=== PATIENT | male | born 1975 | race Caucasian/White ===

== ENCOUNTER 2022-06-21 17:55 | Emergency (ER) | payer SELFPAY ==
[~2022-06-21] VITALS: Ht 175.3 cm; Wt 118.0 kg
[2022-06-21 18:08] VITALS: BP 158/93
[2022-06-21] MEDS ORDERED: SODIUM CHLORIDE 0.9% 1,000 ML IV ONE (18:15)
[2022-06-21 18:43] LABS: BASOPHILS % 0.4 % (0.0-2.0); EOSINOPHILS % 1.2 % (0.0-5.0); HEMATOCRIT. 47.1 % (42.0-52.0); HEMOGLOBIN. 15.9 g/dL (14.0-18.0); LYMPHOCYTES % 8.4 % (20.0-50.0); MEAN CORPUSCULAR HEMOGLOBIN 26.9 pg (28.0-32.0); MONOCYTES % 4.6 % (2.0-8.0); NEUTROPHILS % 85.4 % (40.0-76.0); PLATELET 226 x1000/uL (130-400); RED CELL DISTRIBUTION WIDTH 14.1 % (11.6-14.6)
[2022-06-21 18:49] LABS: CHLORIDE 104 mEq/L (98-107)
[2022-06-21 19:00] LABS: ETHANOL BLOOD < 10 mg/dL
[2022-06-21] MEDS ORDERED: NALO4SPR BOTHNSTRLS (19:35)
== END 2022-06-21 21:26 | disposition home or self-care (01) ==
LOC: ER 17:55
DX: R41.82 Altered mental status, unspecified (principal); E10.649 Type 1 diabetes mellitus with hypoglycemia without coma
CPT/HCPCS: 36415; 70450; 71045; 80053; 80307; 80320; 80329; 82962; 85025; 99285; J7030; G0480